=== PATIENT | male | born 1975 | race Caucasian/White ===

== ENCOUNTER 2021-01-20 17:58 | Emergency (ER) | payer OTHER, SELFPAY ==
--- NOTE | ~2021-01-20 | XR_ITS ---
EXAMINATION: XR foot LT min 3V DATE: 01/20/2021 18:39 INDICATION: Left foot pain after stepping on a nail. TECHNIQUE: Dorsoplantar, two oblique and lateral views of the left foot were obtained. COMPARISON: None. FINDINGS: Alignment is normal. No fracture. Mild osteoarthritis at the first metatarsophalangeal joint. Small p lantar calcaneal spur. Soft tissues are unremarkable. No soft tissue gas or radiopaque foreign bodies . IMPRESSION: 1. No acute osseous abnormality or radiopaque foreign body. Reviewed, dictated and finalized at location A.
[2021-01-20 18:22] VITALS: BP 109/62; PULSE 60; RESP 18; TEMP 37.2; O2SAT 97
--- NOTE | 2021-01-20 19:21 | ED.SKABFB ---
HPI - Skin/Abscess/Foreign Bdy General Chief complaint: Skin/Abscess/Foreign Body Stated complaint: Swollen and pain in left Foot from Nail Time Seen by Provider: 01/20/21 19:21 Source: patient and RN notes reviewed Mode of arrival: ambulatory Limitations: no limitations History of Present Illness HPI narrative: 45 year old male presents to express care with complaint of discomfort to the plantar aspect of his left foot from where he stepped on a nail yesterday. Patient has noted puncture wound to the plantar aspect of his left foot which is tender to palpation, no drainage noted or any acute warmth or mild redness of wound site and surrounding tissue with minimal swelling noted.. Patient states that he is unsure when he had his last tetanus immunization but does not want one today. Patient denies any fevers, chills, or sweats or any other symptoms. MD complaint: other (puncture wound left foot) Onset (ago): day(s) (1) Tetanus up to date: unsure (refuses) Location: L foot Severity: moderate Severity scale (1-10): 5 Quality: aching Pain Consistency: intermittent Exacerbating factors: palpation and other (ambulation) Context: other (stepped on nail) Treatments prior to arrival: none Related Data Allergies Allergy/AdvReac Type Severity Reaction Status Date / Time No Known Allergies Allergy Unverified 02/19/15 16:51 Review of Systems Review of Systems: Narrative: CONSTITUTIONAL: Denies fever, chills, or sweats. EYES: Denies visual changes, redness, or discharge. ENT: Denies rhinorrhea, congestion, sore throat, or otalgia. CARDIOVASCULAR: Denies chest pain, palpitations, or edema. RESPIRATORY: Denies cough or dyspnea. GASTROINTESTINAL: Denies abdominal pain, nausea, vomiting, or diarrhea. GENITOURINARY: Denies dysuria or hematuria. SKIN: Denies rash or itching.positive for puncture wound to mid plantar aspect of his left foot. MUSCULOSKELETAL: Denies back pain, joint pain, or myalgia. NEUROLOGIC: Denies headache, numbness, or weakness. PSYCHIATRIC: Denies anxiety or depression. All systems reviewed & are unremarkable except as noted in HPI and below PMFSH Past Medical History Medical History (Updated 01/23/21 @ 19:49 by Tammie Cook NP) GERD (gastroesophageal reflux disease) Surgical History Surgical History (Updated 01/23/21 @ 19:38 by Tammie Cook NP) History of umbilical hernia repair Family History Family History (Updated 01/23/21 @ 19:38 by Tammie Cook NP) Other No significant family history Social History Social History (Updated 01/23/21 @ 19:45 by Tammie Cook NP) Smoking packs per day: 1 Smoking cigarettes per day: 20.0 Years smoked: 30 Smoking pack-years: 30.00 Smoking status: Current every day smoker Tobacco type: cigarettes Alcohol intake: current Alcohol use details: social Substance use: never Living arrangements: with family Gender identity (if verbalized by the patient): Male Comments At time of signature, agree with nursing past medical, surgical, social and family history. There is no relevant family history pertinent to the presenting complaint Exam Narrative: Exam Narrative: GENERAL: Well-appearing, well-nourished, and in no acute distress. HEAD: Normocephalic, atraumatic. EYES: PERRLA and EOMI. ENT: Nares clear, no rhinorrhea or epistaxis. Mucous membranes moist. NECK: Supple.no lymphadenopathy CHEST: Clear to auscultation. No respiratory distress.SAO2 97% on room air HEART: Regular rate and rhythm. No murmur heard. Normal peripheral pulses. ABDOMEN: Soft, nontender, nondistended, normal active bowel sounds. EXTREMITIES: Normal range of motion. No edema. SKIN: Warm, dry, no rash.puncture wound to the mid plantar region of his left foot with mild redness and swelling at wound site,Patient has full mobility of his left foot with no tingling or numbness, strong pedal and posterior tibial pulses NEURO: No focal deficits. Alert and oriented x3.
== END 2021-01-20 19:30 | disposition home or self-care (01) ==
PROVIDERS: Emergency Provider Registered Nurse; PCP Family Medicine
DX: S91.332A Puncture wound without foreign body, left foot, initial encounter (principal); W45.0XXA Nail entering through skin, initial encounter; F17.210 Nicotine dependence, cigarettes, uncomplicated; K21.9 Gastro-esophageal reflux disease without esophagitis
CPT/HCPCS: 73630; 99203; G0463

== ENCOUNTER 2022-06-19 12:25 | Emergency (ER) | payer OTHER, SELFPAY ==
--- NOTE | 2022-06-19 12:29 | ED.SKABFB ---
HPI - Skin/Abscess/Foreign Bdy General Chief complaint: Skin/Abscess/Foreign Body Stated complaint: boil in between butt crack Time Seen by Provider: 06/19/22 12:42 Source: patient and RN notes reviewed Mode of arrival: ambulatory Limitations: no limitations History of Present Illness HPI narrative: 47-year-old male presents with concern for of well known his buttocks. He reports noticing yesterday some pain, it became worse yesterday it is painful to walk and sit. He denies fever, aches, chills, sweats. Denies drainage from the area. Reports he is spread stab without relief complaint: abscess/boil Related Data Allergies Allergy/AdvReac Type Severity Reaction Status Date / Time No Known Allergies Allergy Unverified 06/19/22 12:36 Review of Systems Review of Systems: CONSTITUTIONAL: Denies malaise, chills, sweats, or fever. EYES: Denies redness, or discharge. ENT: Denies rhinorrhea, congestion, swollen lips, swollen tongue CARDIOVASCULAR: Denies chest pain, palpitations, or edema. RESPIRATORY: Denies cough or dyspnea. GASTROINTESTINAL: Denies abdominal pain, nausea, vomiting SKIN: Reports redness, swelling, tenderness to right buttock MUSCULOSKELETAL: Denies joint pain or myalgia. NEUROLOGIC: Denies headache. All systems reviewed & are unremarkable except as noted in HPI and below PMFSH Past Medical History Medical History (Updated 06/19/22 @ 12:52 by Beth Valencia NP) GERD (gastroesophageal reflux disease) Surgical History Surgical History (Updated 01/23/21 @ 19:38 by Tammie Cook NP) History of umbilical hernia repair Family History Family History (Updated 01/23/21 @ 19:38 by Tammie Cook NP) Other No significant family history Social History Social History (Updated 01/23/21 @ 19:45 by Tammie Cook NP) Smoking packs per day: 1 Smoking cigarettes per day: 20.0 Years smoked: 30 Smoking pack-years: 30.00 Smoking status: Current every day smoker Tobacco type: cigarettes Alcohol intake: current Alcohol use details: social Substance use: never Gender identity (if verbalized by the patient): Male Comments At time of signature, agree with nursing past medical, surgical, social and family history. There is no relevant family history pertinent to the presenting complaint Exam Narrative: GENERAL: Well-appearing, well-nourished, and in no acute distress. HEAD: Normocephalic, atraumatic. EYES: PERRLA, conjunctivae clear ENT: Mucous membranes moist. NECK: Supple. No lymphadenopathy CHEST: Clear to auscultation. No respiratory distress. HEART: Regular rate and rhythm. SKIN: Warm, dry. Approximately 3cm x 2cm area of induration, warmth, erythema with well-defined edges, without fluctuation or drainage noted to the right buttock. No vesicles, bullae, necrosis, ecchymosis, crepitus noted, surrounding structures intact without tenderness. NEURO: Alert and oriented x3. PSYCH: Normal mood and affect Course Course Emergency Course: Patient is aware of diagnosis, understands and agrees to treatment plan. Anticipatory guidance given. Patient agrees to follow-up as directed and is aware of reasons to seek care at the emergency department. Portions of this record may have been created with voice recognition software Level of Care: Express Care Visit Vital Signs Vital signs: Reviewed. MDM - Skin/Abscess/Foreign Bdy MDM Narrative Medical decision making narrative: Does not appear at this time to be erythema multiforme, bullous, SJS, TEN; no evidence at this time to suggest RMSF, NSTI, endocarditis or Lyme disease; patient looks well, nontoxic and is tolerating oral intake; no neurologic signs or symptoms; no headache, photophobia or neck pain; afebrile. Patient does not have history of of penetrating trauma, laceration, blunt trauma, recent surgery, immunosuppression, malignancy, obesity, alcoholism, corticosteroid use. Discussed the importance of follow-up, mega
[2022-06-19 12:30] VITALS: BP 132/89; PULSE 61; RESP 20; TEMP 36.4; O2SAT 98
== END 2022-06-19 12:56 | disposition home or self-care (01) ==
PROVIDERS: Emergency Provider Nurse Practitioner; PCP Family Medicine
DX: L03.317 Cellulitis of buttock (principal); F17.210 Nicotine dependence, cigarettes, uncomplicated
CPT/HCPCS: 99213; G0463

== ENCOUNTER 2022-06-21 16:32 | Emergency (ER) | payer OTHER, SELFPAY ==
[2022-06-21 16:43] VITALS: BP 119/68; PULSE 70; RESP 20; TEMP 37.1; O2SAT 96
--- NOTE | 2022-06-21 18:03 | ED.GENADULT ---
HPI - General Adult General Chief complaint: Skin/Abscess/Foreign Body Stated complaint: Skin Problem Time Seen by Provider: 06/21/22 18:05 Source: patient Mode of arrival: ambulatory Limitations: no limitations History of Present Illness HPI narrative: 47-year-old male presented for complaint of worsening abscess to the right buttocks. He was seen at our clinic on 06/19, taking the prescribed antibiotic as directed. He states the pain and swelling has worsened. He states warm compresses also worsens the pain. He denies nausea, vomiting, fevers or chills. Related Data Home Medications Medication Instructions Recorded Confirmed No Home Medications 06/21/22 06/21/22 Allergies Allergy/AdvReac Type Severity Reaction Status Date / Time No Known Allergies Allergy Unverified 06/21/22 17:26 Review of Systems Review of Systems: CONSTITUTIONAL: Denies body aches, fever, chills, or sweats. EYES: Denies visual changes, redness, or discharge. ENT: Denies rhinorrhea, congestion CARDIOVASCULAR: Denies chest pain, palpitations, or edema. RESPIRATORY: Denies cough or dyspnea. GASTROINTESTINAL: Denies abdominal pain, nausea, vomiting, or diarrhea. SKIN: Per HPI MUSCULOSKELETAL: Denies back pain, joint pain, or myalgia. NEUROLOGIC: Denies headache, numbness, tingling, or weakness. FOR[facility] Past Medical History Medical History GERD (gastroesophageal reflux disease) Surgical History Surgical History History of umbilical hernia repair Family History Family History Other No significant family history Social History Social History Smoking packs per day: 1 Smoking cigarettes per day: 20.0 Years smoked: 30 Smoking pack-years: 30.00 Smoking status: Current every day smoker Tobacco type: cigarettes Alcohol intake: current Alcohol use details: social Substance use: never Gender identity (if verbalized by the patient): Male Comments At time of signature, I have reviewed and agree with nursing past medical, surgical, social and family history unless otherwise noted. Please see nursing chart for further information. There is no relevant family history pertinent to the presenting complaint Exam Narrative: GENERAL: Well-appearing HEAD: Normocephalic, atraumatic. EYES: conjunctivae clear, and EOMI. ENT: Mucous membranes moist. Oropharynx without edema, erythema or lesions. NECK: Supple. No lymphadenopathy CHEST: Clear to auscultation. HEART: Regular rate and rhythm. SKIN: Warm, dry. approximately 5 cm erythematous/indurated area to the right medial buttock, fluctuant center approximately 2 cm, no active drainage. Site is tender with minimal touch. NEURO: Alert and oriented x3. Course Course Emergency Course: Patient is aware of diagnosis, understands and agrees to treatment plan. Anticipatory guidance given. Patient agrees to follow-up as directed and is aware of reasons to seek care at the emergency department. Portions of this record may have been created with voice recognition software Level of Care: Express Care Visit Vital Signs Vital signs: Vital Signs Temperature 98.7 F 06/21/22 16:43 Pulse Rate 70 06/21/22 16:43 Respiratory Rate 20 06/21/22 16:43 Blood Pressure 119/68 06/21/22 16:43 Pulse Oximetry 96 06/21/22 16:43 Oxygen Delivery Room Air 06/21/22 16:43 Temperature 98.7 F 06/21/22 16:43 Pulse Rate 70 06/21/22 16:43 Respiratory Rate 20 06/21/22 16:43 Blood Pressure 119/68 06/21/22 16:43 Pulse Oximetry 96 06/21/22 16:43 Oxygen Delivery Room Air 06/21/22 16:43 Reviewed Procedures Abscess I/D right medial buttock: Date of Incision: 06/21/22 Local Anesthetic: lidocaine 1% and with epi
--- NOTE | 2022-06-21 19:35 | PC.NURSE ---
10 minutes prior to discharge pt/friend reported lightheadedness, paleness when standing - assisted to chair. observed sitting. p 60, b/p 120/70, r 20, skin warm and dry. cool rag applied to forehead, neck - reports then feeling much better. refuses wheelchair at this time.
== END 2022-06-21 18:50 | disposition home or self-care (01) ==
PROVIDERS: Emergency Provider Nurse Practitioner Family; PCP Family Medicine
DX: L02.31 Cutaneous abscess of buttock (principal); K21.9 Gastro-esophageal reflux disease without esophagitis; F17.210 Nicotine dependence, cigarettes, uncomplicated
CPT/HCPCS: 10060; 87070; 87147; 87181; 87186; 87205; 99212; G0463

== ENCOUNTER 2022-09-08 14:32 | Emergency (ER) | payer OTHER, SELFPAY ==
--- NOTE | ~2022-09-08 | XR_ITS ---
Right Knee Technique: AP, lateral, and oblique views were obtained. Clinical History: Pain Findings: No fracture or dislocation is seen. Osseous alignment is anatomic. Joint spaces are preserv ed without degenerative or erosive change. Possible small joint effusion is seen. Impression: No fracture or dislocation. Possible small joint effusion. [place]ed, [place] [facility] [place] [facility] Impression: No fracture or dislocation. Possible small joint effusion.
[2022-09-08 14:37] VITALS: BP 116/57; PULSE 77; RESP 18; TEMP 36.9; O2SAT 97
--- NOTE | 2022-09-08 15:06 | ED.LOWEXIN ---
HPI - Extremity Injury (Lower) General Chief Complaint: Extremity Injury, Lower Stated Complaint: right knee swelling, tightness, popping Time Seen by Provider: 09/08/22 15:06 Source: patient, RN notes reviewed and old records reviewed Mode of arrival: ambulatory Limitations: no limitations History of Present Illness HPI Narrative: 47 year old old male presents to [facility] care with complaints of pain to his right knee for the past 4-5 days. He states he was walking and stepped to the side and felt pop to his knee. Patient has reported pain to the lower aspect of his knee under knee cap region. He reports that he has been using ice to his right knee but has not taken any OTC medications for his discomfort. MD complaint: knee injury Onset (ago): day(s) (4-5) Type of Injury: other (twisted while walking felt pop) Severity scale (1-10): 5 Treatments prior to arrival: cold therapy Related Data Allergies Allergy/AdvReac Type Severity Reaction Status Date / Time No Known Allergies Allergy Unverified 09/08/22 14:39 Review of Systems Review of Systems: CONSTITUTIONAL: Denies fever, chills, or sweats. CARDIOVASCULAR: Denies chest pain, palpitations, or edema. RESPIRATORY: Denies cough or dyspnea. SKIN: Denies rash or itching. Denies laceration or abrasions MUSCULOSKELETAL: Reports pain to the area under knee cap of right knee for past 4-5 days NEUROLOGIC: Denies numbness, or weakness. All systems reviewed & are unremarkable except as noted in HPI and below PMFSH Past Medical History Medical History GERD (gastroesophageal reflux disease) Surgical History Surgical History History of umbilical hernia repair Family History Family History Other No significant family history Social History Social History Smoking packs per day: 1 Smoking cigarettes per day: 20.0 Years smoked: 30 Smoking pack-years: 30.00 Smoking status: Current every day smoker Tobacco type: cigarettes Alcohol intake: current Alcohol use details: social Substance use: never Living arrangements: with family Gender identity (if verbalized by the patient): Male Comments At time of signature, agree with nursing past medical, surgical, social and family history. There is no relevant family history pertinent to the presenting complaint Exam Narrative: GENERAL: Well-appearing, well-nourished, and in no acute distress. HEAD: Normocephalic, atraumatic. EYES: PERRLA and EOMI. ENT: Nares clear, no rhinorrhea or epistaxis. Mucous membranes moist. NECK: Supple. no lymphadenopathy CHEST: Clear to auscultation. No respiratory distress.SAO2 97% on room air HEART: Regular rate and rhythm. No murmur heard. Normal peripheral pulses. ABDOMEN: Soft, nontender, nondistended, normal active bowel sounds. EXTREMITIES: Normal range of motion. No edema.Pain to area under knee cap with full ROM noted but with discomfort, no obvious edema or deformity noted, negative varus and valgus test, drawer test negative. sensation and circulation is intact. SKIN: Warm, dry, no rash. NEURO: No focal deficits. Alert and oriented x3. Course Course Emergency Course: Patient is aware of diagnosis, understands and agrees to treatment plan. Anticipatory guidance given. Patient agrees to follow-up as directed and is aware of reasons to seek care at the emergency department. Portions of this record may have been created with voice recognition software Level of Care: Express Care Visit Vital Signs Vital signs: Vital Signs Temperature 36.9 C 09/08/22 14:37 Pulse Rate 77 09/08/22 14:37 Respiratory Rate 18 09/08/22 14:37 Blood Pressure 116/57 L 09/08/22 14:37 Pulse Oximetry 97 09/08/22 14:37 Oxygen Delivery Room Air 09/08/22 14:37
== END 2022-09-08 15:21 | disposition home or self-care (01) ==
PROVIDERS: Emergency Provider Registered Nurse; PCP Family Medicine
DX: M25.461 Effusion, right knee (principal); F17.210 Nicotine dependence, cigarettes, uncomplicated
CPT/HCPCS: 73564; 99213; G0463

== ENCOUNTER 2022-11-17 09:07 | Emergency (ER) | payer OTHER, SELFPAY ==
[2022-11-17 09:13] VITALS: BP 146/80; PULSE 66; RESP 16; TEMP 36.8; O2SAT 100
--- NOTE | 2022-11-17 09:18 | ED.SKABFB ---
HPI - Skin/Abscess/Foreign Bdy General Chief complaint: Skin/Abscess/Foreign Body Stated complaint: left arm swollen/poss bite Time Seen by Provider: 11/17/22 09:18 Source: patient, RN notes reviewed and old records reviewed Mode of arrival: ambulatory Limitations: no limitations History of Present Illness HPI narrative: 47 year old male who presents to [facility] care with complaints of some swelling and redness area on left forearm that he noted this morning. Patient states he thinks he got a bug bite to the area and he admits to squeezing on area with swelling now noted. Patient reports no acute pain to area but reports some itching. Patient has [id number] area of redness to mid left forearm with no drainage noted, mild warmth to tissue area and firmness noted, small bite umm noted. Patient denies any known fevers chills or sweats.Patient is right hand dominant. MD complaint: rash, insect bite/sting and other (swelling and redness) Onset (ago): hour(s) (noted this morning) Severity scale (1-10): 2 Treatments prior to arrival: other (squeezed on tissue area now increased redness and swelling) Related Data Home Medications Medication Instructions Recorded Confirmed tadalafil 10 mg tablet 10 mg PO DAILY 11/17/22 11/17/22 Allergies Allergy/AdvReac Type Severity Reaction Status Date / Time No Known Allergies Allergy Verified 11/17/22 09:18 Review of Systems Review of Systems: CONSTITUTIONAL: Denies fever, chills, or sweats. CARDIOVASCULAR: Denies chest pain, palpitations, or edema. RESPIRATORY: Denies cough or dyspnea. SKIN: Reports swelling and redness to left forearm,bite umm center of red area no drainage noted MUSCULOSKELETAL: Denies joint pain or myalgia. NEUROLOGIC: Denies headache, numbness, or weakness. All systems reviewed & are unremarkable except as noted in HPI and below [facility] Past Medical History Medical History (Updated 11/18/22 @ 00:01 by Jeromy Garcia) GERD (gastroesophageal reflux disease) Surgical History Surgical History (Updated 11/18/22 @ 15:40 by Tammie Cook NP) History of rotator cuff surgery right History of umbilical hernia repair Family History Family History Other No significant family history Social History Social History Smoking packs per day: 1 Smoking cigarettes per day: 20.0 Years smoked: 30 Smoking pack-years: 30.00 Smoking status: Current every day smoker Tobacco type: cigarettes Alcohol intake: current Alcohol use details: social Substance use: never Living arrangements: with family Gender identity (if verbalized by the patient): Male Comments At time of signature, agree with nursing past medical, surgical, social and family history. There is no relevant family history pertinent to the presenting complaint Exam Narrative: GENERAL: Well-appearing, well-nourished, and in no acute distress. HEAD: Normocephalic, atraumatic. EYES: PERRLA, conjunctivae clear, and EOMI. ENT: Mucous membranes moist. Oropharynx without edema, erythema or lesions. NECK: Supple. No lymphadenopathy CHEST: Clear to auscultation. No respiratory distress.SAO2 100% on room air HEART: Regular rate and rhythm. SKIN: Warm, dry.? Patches of erythema and edema to left forearm with minimal warmth, small bite in center of redness, no drainage noted NEURO:? Alert and oriented x3. PSYCH: Normal mood and affect Course Course Emergency Course: Patient is aware of diagnosis, understands and agrees to treatment plan.? Anticipatory guidance given.? Patient agrees to follow-up as directed and is aware of reasons to seek care at the emergency department. Portions of this record may have been created with voice recognition software Level of Care: Express Care Visit Vital Signs Vital signs: Vital Signs Temperature 36.8 C 11/06
== END 2022-11-17 09:30 | disposition home or self-care (01) ==
PROVIDERS: Emergency Provider Registered Nurse; PCP Family Medicine
DX: L03.114 Cellulitis of left upper limb (principal); K21.9 Gastro-esophageal reflux disease without esophagitis; F17.210 Nicotine dependence, cigarettes, uncomplicated
CPT/HCPCS: 99213; G0463

== ENCOUNTER 2023-12-20 12:17 | Emergency (ER) | payer OTHER, SELFPAY ==
--- NOTE | ~2023-12-20 | XR_ITS ---
Left Knee Technique: AP, lateral, and oblique views were obtained. Clinical History: Pain Findings: No fracture or dislocation is seen. Osseous alignment is anatomic. Joint spaces are preserv ed without degenerative or erosive change. Soft tissues are unremarkable. No joint effusion is seen. Impression: Unremarkable left knee radiographs. Reviewed, dictated and finalized at [facility]. Impression: Unremarkable left knee radiographs.
[2023-12-20 12:24] VITALS: BP 123/64; PULSE 61; RESP 16; TEMP 36.8; O2SAT 97
--- NOTE | 2023-12-20 14:08 | ED.GENADULT ---
HPI - General Adult General Chief complaint: Extremity Injury, Lower Stated complaint: Left Knee/Injury Time Seen by Provider: 12/20/23 13:40 Source: patient, RN notes reviewed and old records reviewed Mode of arrival: ambulatory Limitations: no limitations History of Present Illness HPI narrative: 48 year old male presents to [facility] care with complaints of injury to his left knee at work today around 1000. Patient initially upset he had to repeat his story to another person, when identified that I was [employer] he said oh I've told this to 3 other people since I got here. Patient states he slipped at work today and twisted his left knee. He reports that the pain was so intense that he fell back and questions whether he passed out. Patient states he doesn't know if he hit his back or his head, denies any headache or back pain at this time. Patient states that he had a left meniscal tear repaired in his left knee in July and pain feels the same as then and he is having trouble bearing full weight to his knee. Patient does have some limp noted to gait, Patient reports that pain is to sides of knee and behind his knee reports that he has taken some Ibuprofen and rates pain at 5/10. x-ray done of left knee in clinic he states he thinks he needs MRI of his left knee. MD complaint: injury to left knee twisting injury Onset (ago): hour(s) (1000 today) Location: left and lower extremity (knee) Severity scale (1-10): 5 Quality: other (soreness) Treatments prior to arrival: NSAID Related Data Home Medications Medication Instructions Recorded Confirmed No Home Medications 12/20/23 12/20/23 Allergies Allergy/AdvReac Type Severity Reaction Status Date / Time No Known Allergies Allergy Verified 12/20/23 12:53 Review of Systems Review of Systems: CONSTITUTIONAL: Denies fever, chills, or sweats. EYES: Denies visual changes, redness, or discharge. ENT: Denies rhinorrhea, congestion, sore throat, or otalgia. CARDIOVASCULAR: Denies chest pain, palpitations, or edema. RESPIRATORY: Denies cough or dyspnea. GASTROINTESTINAL: Denies abdominal pain, nausea, vomiting, or diarrhea. GENITOURINARY: Denies dysuria or hematuria. SKIN: Denies rash or itching. MUSCULOSKELETAL: Denies back pain,positive for pain to sides and back of his left knee from twisting injury today. or myalgia. NEUROLOGIC: Denies headache, numbness, or weakness. PSYCHIATRIC: Denies anxiety or depression. All systems reviewed & are unremarkable except as noted in HPI and below PMFSH Past Medical History Medical History GERD (gastroesophageal reflux disease) Sinus infection Surgical History Surgical History H/O arthroscopy of left knee 07/2023 meniscus repair H/O inguinal hernia repair History of rotator cuff surgery right History of umbilical hernia repair Family History Family History Other No significant family history Social History Social History Smoking packs per day: 1 Smoking cigarettes per day: 20.0 Years smoked: 30 Smoking pack-years: 30.00 Smoking status: Current every day smoker Tobacco type: cigarettes Alcohol intake: current Alcohol use details: social Substance use: never Living arrangements: with family Gender identity (if verbalized by the patient): Male Comments At time of signature, agree with nursing past medical, surgical, social and family history. There is no relevant family history pertinent to the presenting complaint Exam Narrative: GENERAL: Well-appearing, well-nourished, and in no acute distress. HEAD: Normocephalic, atraumatic. EYES: PERRLA and EOMI. ENT: Nares clear, no rhinorrhea or epistaxis. Mucous membranes moist. NECK: Supple. no lymphadenopathy CHEST: Clear to auscultation. No re
== END 2023-12-20 14:28 | disposition home or self-care (01) ==
PROVIDERS: Emergency Provider Registered Nurse; PCP Family Medicine
DX: M25.562 Pain in left knee (principal); F17.210 Nicotine dependence, cigarettes, uncomplicated; K21.9 Gastro-esophageal reflux disease without esophagitis
CPT/HCPCS: 73564; 99213; G0463

== ENCOUNTER 2024-09-21 17:02 | Emergency (ER) | payer MEDICAID, SELFPAY ==
--- OUTSIDE RECORDS SUMMARY | 2024-09-21 17:05 | XMS_ITS | Data Portability ---
Author Organization [facility] Saurabh QUIROS Address [address] [place] [address] Care Team Providers Care Setter Helper Name Role Phone SANTANA SORIA Primary Care Provider Assessment Encounter Date Assessment Date Assessment LastModified by Organization Details LastModified Time 10/02/2019 10/02/2019 Dr. Garcia is planning to do an elective orthopedic intervention on his shoulder. Not available 10/03/2019 11:59:59 05/05/2021 05/05/2021 Pt will pursue followup with an orthopedist to see if he needs surgery or not. [email or web address] Not available 05/06/2021 13:09:40 Plan of Treatment Reminders Order Date Submit Date Provider Last Modified By Organization Details Last Modified Time Details Appointments None recorded. Lab lipid panel, serum 2020 [facility], [address] [place] [address], [facility] [address], [place], [address], 08:20:17 CMP, serum or plasma 2020 [facility], [address] [place] [address], [address], [place], [address], 08:20:16 CBC w/ auto diff 2020 [facility], [address] [place] [address], [address], [place], [address], 08:20:15 TSH + free T4, serum 2020 [facility], [address] [facility], [address], [place], [address], 08:20:15 vitamin D, 25-hydrox y, total, serum 2020 [facility], [address] [facility], [address], [place], [address], 08:20:18 HbA1c (hemoglob in A1c), blood 2020 [facility], [address] [facility], [address], [place], [address], 08:20:17 Referral orthopedi c surgeon referral - left knee pain concernin g for meniscal injury. Patient prefers ortho referral vs trail of PT 2022 023 JASON Weber MD, [address] [facility] , [address], [place], [address], 3 14:00:31 general surgeon referral 2022 023 JASON Perez MD, [address] [facility] , [address], [place], [address], 3 15:13:36 orthopedi c surgeon referral 2022 023 [email or web address] Juan Weber MD, [address] [facility] , [address], [place], [address], 3 16:35:47 orthopedi c surgeon referral 2020 021 JASON Garcia MD, [address] [facility] , [address], [place], [address], 1 12:03:35 Procedures None recorded. Surgeries None recorded. Imaging None recorded. Medication Orders hydrocodo ne 5 mg-acetam inophen 325 mg tablet [address] [facility][id number], [address], [place], [place], [id number], 3 13:56:23 Medrol (Rafat) 4 mg tablets in a dose pack 2022 023 [id number], [address], [place], [place], [id number], 3 16:26:08 doxycycli ne monohydra te 100 mg capsule 2022 023 [facility] #13116, [address], [place], [place], [id number], 3 16:25:56 tadalafil 10 mg tablet 2022 023 [facility] #[id number], [address], [place], [place], [id number], 3 16:44:03 Nicoderm CQ 21 mg/24 hr daily transderm al patch [address] [facility] #26698, [address], [place], [place], [id number], 4 11:39:27 nicotine 21 mg/24 hr daily transderm al patch [address] [facility]99, [address] [place], [place], [id number], 4 11:39:27 nicotine 14 mg/24 hr daily transderm al patch 2020 021 [facility]50797, [address] [place], [place], [id number], 16:09:35 nicotine 7 mg/24 hr daily transderm al patch 2020 021 [facility], [address] [place], [id number], 16:09:44 Patient TargetsNo targets recorded. Patient Instructions Encounter Date Encounter Id Patient Instructions Last Modified By Organization Details Last Modified Time 05/05/2021 [id number] When You Want to Lose Weight: Care Instructions [email or web address] Not available 05/05/2021 12:30:26 09/26/2022 [id number] A healthy lifestyle: care instructions [email or web address] Not available 09/26/2022 17:45:45 Quitting Tobacco : Care Instructions [email or web address] Not available 09/26/2022 17:45:45 11/30/2022 [id number] inguinal hernia: care instructions [email or web address] Not available 11/30/2022 16:46:42 05/11/2023 [id number] On the date of this encounter, I was immediately available to assist the resident/fellow in the care of the patient, and have reviewed and agree with the resident s findings and plan of care. ~MD Filiberto [email or web address] Not available 05/15/2023 06:43:56 Reason for Referral Orthopedic Surgeon Referral for Pain of right shoulder joint Referring Physician: [facility], Encounter Date: 05/05/2021 Orthopedic Surgeon Referral for Tendinosis of right shoulder Referring Physician: [facility], Encounter Date: 09/26/2022 General Surgeon Referral for Right inguinal hernia Referring Physician: [facility], Encounter Date: 11/30/2022 Orthopedic Surgeon Referral for Pain of left knee joint left knee pain concerning for meniscal injury. Patient prefers ortho referral vs trail of PT Referring Physician: Warren Anderson Trucking Manager, Encounter Date: 05/11/2023 Results Created Date Observation Date Name Description Value Unit Range Abnormal Flag Note LastModifiedBy Organization Detail LastModifiedTime 05/05/20 21 05/06/2021 TSH+F REE T4 TSH 2.320 uIU/m L 0.450- 4.500 Not Available [facility] ([facility]) [address] [place], [address], 05/06/2021 08:20:14 05/05/20 21 05/06/2021 TSH+F REE T4 T4,free(dire ct) 1.05 NG/dL 0.82-1 .77 Not Available [facility] ([facility]) [address] [place], [address], 05/06/2021 08:20:14 05/05/20 21 05/06/2021 CBC WITH DIFFE RENTI AL/PL ATELE T WBC 9.8 x10e3 /uL 3.4-10 .8 Not Available [facility] ([facility]) [address] [place], [address], 05/06/2021 08:20:15 05/05/20 21 05/06/2021 CBC WITH DIFFE RENTI AL/PL ATELE T RBC 5.60 x10e6 /uL 4.14-5 .80 Not Available [facility] ([facility]) [address] [place], [address], 05/06/2021 08:20:15 05/05/2005/06/2021 CBC WITH DIFFE RENTI AL/PL ATELE T hemoglobin 17.0 g/dL 13.0-1 7.7 Not Available [facility] ([facility]) [address] [place], [address], 05/06/2021 08:20:15 05/05/20 21 05/06/2021 CBC WITH DIFFE RENTI AL/PL ATELE T hematocrit 51.1 % 37.5-5 1.0 above high normal Not Available [facility] ([facility]) [address] [place], [address], 05/06/2021 08:20:15 05/05/20 21 05/06/2021 CBC WITH DIFFE RENTI AL/PL ATELE T MCV 91 fL 79-97 Not Available [facility] ([facility]) [address] [facility], [place], [address], 05/06/2021 08:20:15 05/05/20 21 05/06/2021 CBC WITH DIFFE RENTI AL/PL ATELE T MCH 30.4 pg 26.6-3 3.0 Not Available [facility] ([facility]) [address] [facility], [place], [address], 05/06/2021 08:20:15 05/05/20 21 05/06/2021 CBC WITH DIFFE RENTI AL/PL ATELE T MCHC 33.3 g/dL 31.5-3 5.7 Not Available [facility] ([facility]) [address] [facility], [place], [address], 05/06/2021 08:20:15 05/05/20 21 05/06/2021 CBC WITH DIFFE RENTI AL/PL ATELE T RDW 13.0 % 11.6-1 5.4 Not Available [facility] ([facility]) [address] [facility], [place], [address], 05/06/2021 08:20:15 05/05/2005/06/2021 CBC WITH DIFFE RENTI AL/PL ATELE T platelets 165 x10e3 /uL 150-45 0 Not Available [facility] ([facility]) [address] [facility], [place], [address], 05/06/2021 08:20:15 05/05/20 21 05/06/2021 CBC WITH DIFFE RENTI AL/PL ATELE T neutrophils 63 % not estab. Not Available [facility] ([facility]) [address] [place], [address], 05/06/2021 08:20:15 05/05/20 21 05/06/2021 CBC WITH DIFFE RENTI AL/PL ATELE T lymphs 24 % not estab. Not Available [facility] ([facility]) [address] [facility], [place], [address], 05/06/2021 08:20:15 05/05/20 21 05/06/2021 CBC WITH DIFFE RENTI AL/PL ATELE T monocytes 9 % not estab. Not Available [facility] ([facility]) [address] [facility], [place], [address], 05/06/2021 08:20:15 05/05/20 21 05/06/2021 CBC WITH DIFFE RENTI AL/PL ATELE T eos 2 % not estab. Not Available [facility] ([facility]) [address] [facility], [place], [address], 05/06/2021 08:20:15 05/05/20 21 05/06/2021 CBC WITH DIFFE RENTI AL/PL ATELE T basos 1 % not estab. Not Available [facility] ([facility]) [address] [facility], [place], [address], 05/06/2021 08:20:15 05/05/20 21 05/06/2021 CBC WITH DIFFE RENTI AL/PL ATELE T immature cells ENAMEL BUFFER Not Available [facility] ([facility]) [address] [facility], [place], [address], 05/06/2021 08:20:15 05/05/20 21 05/06/2021 CBC WITH DIFFE RENTI AL/PL ATELE T neutrophils (absolute) 6.3 x10e3 /uL 1.4-7. 0 Not Available [facility] ([facility]) [address] [facility], [place], [address], 05/06/2021 08:20:15 05/05/20 21 05/06/2021 CBC WITH DIFFE RENTI AL/PL ATELE T lymphs (absolute) 2.4 x10e3 /uL 0.7-3. 1 Not Available [facility] ([facility]) [address] [facility], [place], [address], 05/06/2021 08:20:15 05/05/20 21 05/06/2021 CBC WITH DIFFE RENTI AL/PL ATELE T monocytes(ab solute) 0.9 x10e3 /uL 0.1-0. 9 Not Available [facility] ([facility]) [address] [facility], [place], [address], 05/06/2021 08:20:15 05/05/20 21 05/06/2021 CBC WITH DIFFE RENTI AL/PL ATELE T eos (absolute) 0.2 x10e3 /uL 0.0-0. 4 Not Available [facility] ([facility]) [address] [facility], [place], [address], 05/06/2021 08:20:15 05/05/20 21 05/06/2021 CBC WITH DIFFE RENTI AL/PL ATELE T baso (absolute) 0.1 x10e3 /uL 0.0-0. 2 Not Available [facility] ([facility]) [address] [facility], [place], [address], 05/06/2021 08:20:15 05/05/20 21 05/06/2021 CBC WITH DIFFE RENTI AL/PL ATELE T immature granulocytes 1 % not estab. Not Available [facility] ([facility]) [address] [facility], [place], [address], 05/06/2021 08:20:15 05/05/20 21 05/06/2021 CBC WITH DIFFE RENTI AL/PL ATELE T immature grans (abs) 0.1 x10e3 /uL 0.0-0. 1 Not Available [facility] ([facility]) [address] [facility], [place], [address], 05/06/2021 08:20:15 05/05/20 21 05/06/2021 CBC WITH DIFFE RENTI AL/PL ATELE T NRBC ENAMEL BUFFER Not Available [facility] ([facility]) [address] [facility], [place], [address], 05/06/2021 08:20:15 05/05/20 21 05/06/2021 CBC WITH DIFFE RENTI AL/PL ATELE T hematology comments: ENAMEL BUFFER Not Available [facility] ([facility]) [address] [facility], [place], [address], 05/06/2021 08:20:15 05/05/20 21 05/06/2021 COMP. METAB OLIC PANEL (14) glucose 84 mg/dL 65-99 Not Available [facility] ([facility]) [address] [facility], [place], [address], 05/06/2021 08:20:16 05/05/20 21 05/06/2021 COMP. METAB OLIC PANEL (14) BUN 12 mg/dL 6-24 Not Available [facility] ([facility]) [address] [place], [address], 05/06/2021 08:20:16 05/05/20 21 05/06/2021 COMP. METAB OLIC PANEL (14) creatinine 0.96 mg/dL 0.76-1 .27 Not Available [facility] ([facility]) [address] [facility], [place], [address], 05/06/2021 08:20:16 05/05/20 21 05/06/2021 COMP. METAB OLIC PANEL (14) eGFR if nonafricn AM 96 mL/mi n/1.7 3 >59 Not Available [facility] ([facility]) [address] [place], [address], 05/06/2021 08:20:16 05/05/20 21 05/06/2021 COMP. METAB OLIC PANEL (14) eGFR if africn AM 111 mL/mi n/1.7 3 >59 In accor dance with recom menda tijulio from the NKF-A SN Task force , [facility] is in the proce ss of updat ing its eGFR calcu latio n to the 2020 CKD-E PI creat inine equat ion that estim ates kidne y funct ion witho ut a race varia ble. Not Available [facility] ([facility]) [address] [facility], [place], [address], 05/06/2021 08:20:16 05/05/20 21 05/06/2021 COMP. METAB OLIC PANEL (14) BUN/creatini ne ratio 13 9-20 Not Available [facility] ([facility]) [address] [facility], [place], [address], 05/06/2021 08:20:16 05/05/20 21 05/06/2021 COMP. METAB OLIC PANEL (14) sodium 142 mmol/ L 134-14 4 Not Available [facility] ([facility]) [address] [facility], [place], [address], 05/06/2021 08:20:16 05/05/20 21 05/06/2021 COMP. METAB OLIC PANEL (14) potassium 5.0 mmol/ L 3.5-5. 2 Not Available [facility] ([facility]) [address] [place], [address], 05/06/2021 08:20:16 05/05/20 21 05/06/2021 COMP. METAB OLIC PANEL (14) chloride 104 mmol/ L 96-106 Not Available [facility] ([facility]) [address] [place], [address], 05/06/2021 08:20:16 05/05/20 21 05/06/2021 COMP. METAB OLIC PANEL (14) carbon dioxide, total 25 mmol/ L 20-29 Not Available [facility] ([facility]) [address] [place], [address], 05/06/2021 08:20:16 05/05/20 21 05/06/2021 COMP. METAB OLIC PANEL (14) calcium 9.4 mg/dL 8.7-10 .2 Not Available [facility] ([facility]) [address] [facility], [place], [address], 05/06/2021 08:20:16 05/05/20 21 05/06/2021 COMP. METAB OLIC PANEL (14) protein, total 7.2 g/dL 6.0-8. 5 Not Available [facility] ([facility]) [address] [facility], [place], [address], 05/06/2021 08:20:16 05/05/20 21 05/06/2021 COMP. METAB OLIC PANEL (14) albumin 4.5 g/dL 4.0-5. 0 Not Available [facility] ([facility]) [address] [facility], [place], [address], 05/06/2021 08:20:16 05/05/20 21 05/06/2021 COMP. METAB OLIC PANEL (14) globulin, total 2.7 g/dL 1.5-4. 5 Not Available [facility] ([facility]) [address] [facility], [place], [address], 05/06/2021 08:20:16 05/05/20 21 05/06/2021 COMP. METAB OLIC PANEL (14) A/G ratio 1.7 1.2-2. 2 Not Available [facility] ([facility]) [address] [facility], [place], [address], 05/06/2021 08:20:16 05/05/20 21 05/06/2021 COMP. METAB OLIC PANEL (14) bilirubin, total 0.4 mg/dL 0.0-1. 2 Not Available [facility] ([facility]) [address] [facility], [place], [address], 05/06/2021 08:20:16 05/05/20 21 05/06/2021 COMP. METAB OLIC PANEL (14) alkaline phosphatase 74 IU/L 44-121 Ple ase note refer ence pat laoiza e Not Available [facility] ([facility]) [address] [place], [address], 05/06/2021 08:20:16 05/05/20 21 05/06/2021 COMP. METAB OLIC PANEL (14) AST (SGOT) 17 IU/L 0-40 Not Available [facility] ([facility]) [address] [place], [address], 05/06/2021 08:20:16 05/05/20 21 05/06/2021 COMP. METAB OLIC PANEL (14) ALT (SGPT) 20 IU/L 0-44 Not Available [facility] ([facility]) [address] [place], [address], 05/06/2021 08:20:16 05/05/20 21 05/06/2021 LIPID PANEL cholesterol, total 201 mg/dL 100-19 9 above high normal Not Available [facility] ([facility]) [address] [place], [address], 05/06/2021 08:20:17 05/05/20 21 05/06/2021 LIPID PANEL triglyceride s 135 mg/dL 0-149 Not Available [facility] ([facility]) [address] [place], [address], 05/06/2021 08:20:17 05/05/20 21 05/06/2021 LIPID PANEL HDL cholesterol 37 mg/dL >39 below low normal Not Available [facility] ([facility]) [address] [place], [address], 05/06/2021 08:20:17 05/05/20 21 05/06/2021 LIPID PANEL VLDL cholesterol rick 25 mg/dL 5-40 Not Available [facility] ([facility]) [address] [facility], [place], [address], 05/06/2021 08:20:17 05/05/20 21 05/06/2021 LIPID PANEL LDL chol calc ([facility]) 139 mg/dL 0-99 above high normal Not Available [facility] ([facility]) [address] [facility], [place], [address], 05/06/2021 08:20:17 05/05/20 21 05/06/2021 LIPID PANEL comment: ENAMEL BUFFER Not Available [facility] ([facility]) [address] [facility], [place], [address], 05/06/2021 08:20:17 05/05/20 21 05/06/2021 HEMOG LOBIN A1C hemoglobin A1C 5.6 % 4.8-5. 6 Predi abete s: 5.7 - 6.4 Diabe zach: >6.4 Glyce donna contr ol for adult s with diabe zach: <7.0 Not Available [facility] ([facility]) [address] [facility], [place], [address], 05/06/2021 08:20:17 05/05/2005/06/2021 VITAM IN D, 25-HY DROXY vitamin D, 25-hydroxy 20.7 NG/mL 30.0-1 00.0 below low normal Vitam in D defic iency has been defin ed by the Insti tute of Medic ine and an Endoc rine Socie ty pract ice guide line as a level of serum 25-OH vitam in D less than 20 ng/mL (1,2) . The Endoc rine Socie ty went on to furth er defin e vitam in D insuf ficie ncy as a level betwe en 21 and 29 ng/mL (2). 1. IOM (Inst itute of Medic ine). 2010. Dieta ry refer ence intak es for calci um and D. Ginette romero [place]: The [facility] Press . 2. [place] cao MF, Laila reddy [place], Susana off-F errar i CARMELITA, et al. Evalu ation , treat ment, and preve ntion of vitam in D defic iency : an Endoc rine Socie ty clini rick pract ice guide line. JCEM. 2010; 96(7) :1911 -30. Not Available [facility] ([facility]) [address], [place], [address], 05/06/2021 08:20:18 02/02/20 21 01/20/2021 XR, foot, 3 or more view No observ ation record ed. [email or web address] Not Available 2020 23:40:46 09/10/19 23 09/08/2022 XR, knee No observ ation record ed. [facility] [address], [place], [address], 09/28/2022 10:50:00 11/28/19 23 11/27/2022 CT, abdom en + pelvi s, w/ contr ast No observ ation record ed. [email or web address] Not Available 2022 12:57:16 05/24/20 23 05/13/2023 XR, knee, 1 or 2 view No observ ation record ed. [email or web address] Not Available 2022 15:52:20 Result Notes None recorded. Problems Name Problem SNOMED Code Status Onset Date Resolution Date Notes Provider Name and Address Organization Details Recorded Time Injury of left knee 039937433958 106 Active 2022 hyperexte nded and possibly twisted knee stepping up a curb- exam suspiciou s for menescus injury Warren Anderson MD Attn: Mario g,[address] [facility], [place], [address], [place] - [facility] 3 12:55:34 Pain of left knee joint 375134462741 107 Active 2022 Chinyere Campos MD Attn: Mario g,[address] [facility], [place], [address], [place] [facility] 3 06:43:50 Skin lesion 19129205 Active Sukhdev Dolan MD Attn: Accounthenry louie,[address] [facility], [place], [address], [place] [facility] 5 08:50:25 Tinea cruris 301363366 Active Sukhdev Dolan MD Attn: Accounthenry g,[address] [facility], [place], [address], [place] [facility] 5 10:54:50 Lipoma of skin 743780722 Active Sukhdev Dolan MD Attn: Accounthenry g,[address] [facility], [place], [address], [place] [facility] 5 08:59:07 Smoker 79543901 Active Sukhdev Dolan MD Attn: Accounthenry g,[address] [facility], [place], [address], [place] [facility] 5 08:59:07 Shoulder pain 19465715 Active Juliet zamora, [place] - [facility] 6 12:07:51 Abdominal pain 55277506 Active 2016 Sukhdev Dolan MD Attn: Mario louie,[address] [facility], [place], [address], [place] [facility] 7 09:11:29 Leukocyto sis 831012149 Active 2016 Sukhdev Dolan MD Attn: Mario louie,[address] [facility], [place], [address], [place] [facility] 7 09:11:30 Kidney stone 19315588 Active 2016 Sukhdev Dolan MD Attn: Mario g,[address] [facility], [place], [address], [place] [facility] 7 13:34:46 Chest pain 05216872 Active 2016 Sukhdev Dolan MD Attn: Mario g,[address] [place], [address], [place] [facility] 7 10:38:56 Problem Notes None recorded. Procedures Surgical History Date Name Laterality Status Provider Name and Address Organization Details Recorded Time Other completed Lisa Stanford [place] 03/15/2017 10:01:34 complete repair of rotator cuff completed Yoly Aguilar [place] 09/26/2022 16:11:32 Hernia Repair completed Lara Rodríguez [place] [facility] 04/15/2015 10:23:19 Imaging Results Imaging Date Name Status LastModified by Organiz ation Details LastModified Time 01/20/2021 XR, foot, 3 or more view completed [email or web address] Information not available 02/01/2021 23:40:46 09/08/2022 XR, knee completed [facility] [address] [facility] [address], [place], [address], 09/28/2022 10:50:00 11/27/2022 CT, abdomen + pelvis, w/ contrast completed Information not available 11/29/2022 12:57:16 05/13/2023 XR, knee, 1 or 2 view completed Information not available 05/25/2023 15:52:20 Procedure Notes None recorded. Medical Equipment None Reported. Allergies Allergen ID Allergen Name Allergen Category Reaction Reaction Severity Criticality Documentation Date Start Date Code Code System Note Provider Name and Address Organization Details Recorded Time 431994 codeine medicatio n nausea moderate low 05/24/2023 2670 RxNorm Not Available Not Available Not Available Medications Name Sig Start Date Stop Date Status Note LastModified by Organization Details LastModified Time cyclobenz aprine 10 mg tablet Take 1 tablet 3 times a day by oral route as needed. 08/14 completed Not Available Not Available Not Available nicotine 14 mg/24 hr daily transderm al patch APPLY 1 PATCH TOPICALL Y TO THE SKIN EVERY DAY FOR 14 DAYS 09/26 completed Not Available Not Available Not Available azithromy kemal 250 mg tablet TAKE 2 TABLETS (500 MG) BY ORAL ROUTE ONCE DAILY FOR 1 DAY THEN 1 TABLET (250 MG) BY ORAL ROUTE ONCE DAILY FOR 4 DAYS 10/01 completed Not Available Not Available Not Available ibuprofen 800 mg tablet take 1 pill TID with meals prn 08/14 completed Not Available Not Available Not Available hydrocodo ne 5 mg-acetam inophen 325 mg tablet TAKE 1 TABLET BY MOUTH THREE TIMES DAILY FOR 7 DAYS NEEDED 05/24 completed not taking Not Available Not Available Not Available ondansetr on HCl 4 mg tablet 10/01 completed Not Available Not Available Not Available acetamino phen 300 mg-codein e 30 mg tablet Take 1 tablet 3 times a day by oral route as needed for 5 days. 08/07 completed Not Available Not Available Not Available tramadol 50 mg tablet Take 1 tablet twice a day by oral route as needed for 10 days. 08/07 completed Not Available Not Available Not Available meloxicam 7.5 mg tablet TAKE 1 TABLET BY MOUTH DAILY active Not Available Not Available No t Available Mobic 15 mg tablet Take 1 tablet every day by oral route as needed with meal for pain. 11/08 completed Not Available Not Available Not Available oxycodone -acetamin ophen 5 mg-325 mg tablet TAKE 1 TO 2 TABLETS BY MOUTH EVERY 8 HOURS NEEDED FOR PAIN 05/11 completed Not Available Not Available Not Available doxycycli ne monohydra te 100 mg capsule TAKE 1 CAPSULE BY MOUTH TWICE DAILY FOR 14 DAYS 11/30 completed Not Available Not Available Not Available cephalexi n 500 mg capsule TAKE 1 CAPSULE BY MOUTH EVERY 8 HOURS 11/30 completed Not Available Not Available Not Available Cipro 500 mg tablet Take 1 tablet every 12 hours by oral route for 7 days. 03/15 completed Not Available Not Available Not Available buspirone 10 mg tablet Take 1 tablet twice a day by oral route as needed. 10/05 completed Not Available Not Available Not Available nicotine 21 mg/24 hr daily transderm al patch UNWRAP AND APPLY 1 PATCH TO SKIN EVERY DAY 08/07 completed Not Available Not Available Not Available ibuprofen 600 mg tablet 08/07 completed Not Available Not Available Not Available methylpre dnisolone 4 mg tablets in a dose pack FOLLOW PACKAGE DIRECTIO NS 11/30 completed Not Available Not Available Not Available clotrimaz ole 1 % topical cream APPLY TO THE AFFECTED AND SURROUND ING AREAS OF SKIN BY TOPICAL ROUTE 2 TIMES PER DAY IN THE MORNING AND EVENING 2014 active Not Available Not Available Not Avai lable amoxicill in 875 mg-potass ium clavulana te 125 mg tablet TAKE 1 TABLET BY MOUTH EVERY 12 HOURS FOR 10 DAYS 09/26 completed Not Available Not Available Not Available nicotine 7 mg/24 hr daily transderm al patch APPLY 1 PATCH TOPICALL Y TO THE SKIN EVERY DAY FOR 14 DAYS 09/26 completed Not Available Not Available Not Available Ventolin HFA 90 mcg/actua tion aerosol inhaler 10/01 completed Not Available Not Available Not Available oxycodone 5 mg tablet TAKE 1 TABLET BY MOUTH EVERY 8 HOURS NEEDED FOR PAIN 05/24 completed patient don't have any Not Available Not Available Not Available tadalafil 10 mg tablet TAKE 1 TABLET BY MOUTH IN THE EVENING NEEDED active Not Available Not Available No t Available Vitals Date Recorded Body weight Respiratory rate Body height Body mass index (BMI) Body temperature Oxygen saturation Oxygen saturation in Arterial blood by Pulse oximetry Heart rate Systolic blood pressure Diastolic blood pressure Provider Name and Address Organization Details Last Updated DateTime 1 96242.5 5 g 16 /min 177.8 cm 27.3 kg/m2 97.5 [degF] 95 % 95 % 61 /min 124 mm[Hg] 84 mm[Hg] [facility] [place] - [facility] 1 11:26:48 Date Recorded Body height Body mass index (BMI) Body weight Oxygen saturation Oxygen saturation in Arterial blood by Pulse oximetry Heart rate Respiratory rate Body temperature Systolic blood pressure Diastolic blood pressure Provider Name and Address Organization Details Last Updated DateTime 3 177.8 cm 26.9 kg/m2 48264.8 7 g 99 % 99 % 58 /min 16 /min 97.1 [degF] 135 mm[Hg] 80 mm[Hg] Yoly Aguilar [place] [facility] 3 16:08:11 Date Recorded Body height Body mass index (BMI) Body weight Oxygen saturation Oxygen saturation in Arterial blood by Pulse oximetry Heart rate Respiratory rate Body temperature Systolic blood pressure Diastolic blood pressure Provider Name and Address Organization Details Last Updated DateTime 3 177.8 cm 25.5 kg/m2 09061.3 g 98 % 98 % 63 /min 16 /min 98.4 [degF] 110 mm[Hg] 62 mm[Hg] Yoly Aguilar MA [facility] 3 16:28:42 Date Recorded Body height Body mass index (BMI) Body weight Heart rate Body temperature Respiratory rate Oxygen saturation Oxygen saturation in Arterial blood by Pulse oximetry Systolic blood pressure Diastolic blood pressure Provider Name and Address Organization Details Last Updated DateTime 3 177.8 cm 25.8 kg/m2 35256.6 3 g 64 /min 98.6 [degF] 16 /min 95 % 95 % 135 mm[Hg] 82 mm[Hg] Janice Van MA [facility] 3 10:44:58 Social History Question Answer Notes LastModified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
--- OUTSIDE RECORDS SUMMARY | 2024-09-21 17:05 | XMS_ITS | Clinical Summary ---
Author Organization [facility] Address [address] [place] [address] Phone Care Team Providers Care Press Hand Name Role Phone Santana Adame MD Primary Care Provider [phone] Allergies No known active allergies Medications ibuprofen (MOTRIN) 200 MG Tablet Take 600 mg by mouth every 8 hours as needed. Active HYDROcodone-acet aminophen (NORCO) 5-325 MG Tablet Take 1-2 Tabs by mouth every 4 hours as needed for Pain. 40 Tab 7 Active azithromycin (ZITHROMAX) 250 MG Tablet 2 tab(s) daily for 1 day, then 1 tab(s) daily for days 2-5. 6 Tab 9 Active ondansetron (ZOFRAN) 4 MG Tablet Take 1 Tab by mouth every 6 hours as needed for Nausea - 1st line. 10 Tab 9 Active albuterol 108 (90 Base) MCG/ACT Aerosol Solution take 2 Puffs by inhalation every 6 hours as needed for Wheezing or Cough (SOB). 1 Inhaler 9 Active HYDROcodone-acet aminophen (NORCO) 5-325 MG TabletIndication s:Left knee injury Take 1 Tablet by mouth every 6 hours as needed for Moderate or more severe pain. 15 Tablet 3 Active meloxicam (MOBIC) 7.5 MG Tablet Take 1 Tablet by mouth daily. 30 Tablet 3 Active traMADol (ULTRAM) 50 MG TabletIndication s:Unilateral recurrent inguinal hernia without obstruction or gangrene Take 1-2 Tablets by mouth every 6 hours as needed for Severe pain. 20 Tablet 4 Active Active Problems No known active problems Family History Medical History Relation Name Comments Prostate Cancer Brother High Cholesterol Father Hypertension Father Stroke Father Heart Attack Mother Stroke Mother Relation Name Status Comments Brother Father Alive Mother Alive Social History Tobacco Use Types Packs/Day Years Used Date Smoking Tobacco: Every Day Cigarettes 0.5 20 Smokeless Tobacco: Never Tobacco Cessation:Ready to Q uit: Yes; Counseling Given: Yes Alcohol Use Standard Drinks/Week Comments No 0 (1 standard drink = 0.6 oz pur e alcohol) Sexually Active Control Partners Comments Yes Female Sex and Gender Information Value Date Recorded Sex Assigned at Not on file Legal Sex Male 9:13 PM CDT Gender Identity Not on file Sexual Orientation Not on file Last Filed Vital Signs Vital Sign Reading Time Taken Comments Blood Pressure 119/77 11/19/2023 10:30 AM CDT Pulse 56 11/19/2023 10:30 AM CDT Temperature 36.8 C (98.3 F) 11/19/2023 9:35 AM CDT Respiratory Rate 18 11/19/2023 10:30 AM CDT Oxygen Saturation 97% 11/19/2023 10:30 AM CDT Inhaled Oxygen Concentration - - Weight 81.6 kg (180 lb) 11/19/2023 9:35 AM CDT Height 177.8 cm (5' 10 ) 11/19/2023 9:35 AM CDT Body Mass Index 25.83 11/19/2023 9:35 AM CDT Plan of Treatment Health Maintenance Due Date Last Done Comments Hepatitis C Virus (HCV) Screening 1975 Hepatitis B Immunization (1 of 3 - 19+ 3-dose series) 02/05/1996 Pneumococcal Immunization Combined (1 of 2 - PCV) 02/05/1996 Colonoscopy 2022 Colorectal Cancer Screening 2022 Influenza Immunization (#1) 2024 SARS-COV-2 Immunization ( season) 2024 Respiratory Syncytial Virus (RSV) Immunization (Adult) (1 - 1-dose 75+ series) 02/05/2052 DTaP/Tdap/Td Immunization Discontinued 05/18/2015 TdaP Immunization Completed 05/18/2015 Meningococcal Immunization (ACWY) Aged Out No longer eligible based on patient's age to complete this topic Rotavirus Immunization Aged Out No lo nger eligible based on patient's age to complete this topic Medical Devices Implanted Type Area Underground Foreman Device Identifier Shelf Expiration Date Model / Serial / Lot Bard Inlay Ureteral Stent Implanted:Qty: 1 on 12/19/2016 by Daniele Flores MD at [facility] Left: Ureter [employer] 06/15/2021 [id number] / [id number] / [id number] Insurance MEDICAID [employer] Care Teams Press Hand Relationship Specialty Start Date End Date Santana Adame MD [address] [facility] [place] [place] [address] PCP - General Family Medicine 08/12/18
--- OUTSIDE RECORDS SUMMARY | 2024-09-21 17:05 | XMS_ITS | Clinical Summary ---
Author Organization [facility] Address [address] [place] [id number] Care Team Providers Care Steward/Stewardess Second Name Role Phone Unavailable Primary Care Provider Unavailabl e Social History Tobacco Use Types Packs/Day Years Used Date Smoking Tobacco: Never Assessed Sex and Gender Information Value Date Recorded Sex Assigned at Not on file Legal Sex Male 9:24 PM CDT Gender Identity Not on file Sexual Orientation Not on file Last Filed Vital Signs Vital Sign Reading Time Taken Comments Blood Pressure 130/78 09/23/2015 3:19 PM CDT Pulse 64 09/23/2015 3:19 PM CDT Temperature - - Respiratory Rate - - Oxygen Saturation - - Inhaled Oxygen Concentration - - Weight 97.1 kg (214 lb) 09/23/2015 3:19 PM CDT Height 177.8 cm (5' 10 ) 09/23/2015 3:19 PM CDT Body Mass Index 30.71 09/23/2015 3:19 PM CDT Plan of Treatment Health Maintenance Due Date Last Done Comments Colorectal Cancer Screening Colonoscopy (10 Years) 1977 Annual Physical 02/05/1980 Hepatitis C 1995 DTaP, Tdap and Td Vaccines ( 1 - Tdap) 02/05/1996 Hepatitis B Vaccines (1 of 3 - 19+ 3-dose series) 02/05/1996 COVID-19 Vaccine (2023-2 5 season) 2024 Influenza Adult (#1) 2024 Meningococcal B Vaccine Aged Out No l onger eligible based on patient's age to complete this topic Meningococcal Vaccine Aged Out No heidi raúl eligible based on patient's age to complete this topic Pneumococcal Vaccine: Pediat rics (0 to 5 Years) and At-Risk Patients (6 to 64 Years) Aged Out No longer eligible b ased on patient's age to complete this topic RSV Immunizations Under 20 Months Aged Out No longer eligible based on patient's age to complete this topic
--- OUTSIDE RECORDS SUMMARY | 2024-09-21 17:05 | XMS_ITS | Referral Summary ---
Author Organization [facility] Medical Office Building [address] Address [address] [place] [address] Care Team Providers Care Supplier Quality Engineering Manager Name Role Phone Santana Adame MD Primary Care Provider [phone] Swapnil Garcia MD Unavailable [phone] Itzel Guthrie PT Unavailable Unavaila ble Annamaria Padilla Unavailable + [phone] Allergies Active Allergy Reactions Criticality Noted Date Comments Codeine Nausea only Medium 08/23/2023 Medications tadalafiL (ADCIRCA) 10 mg tablet TAKE 1 TABLET BY MOUTH IN THE EVENING NEEDED 3 Active ascorbic acid (VITAMIN C) 500 mg tablet,chewable Take 1 tablet/chew tab (500 mg total) by mouth 2 (two) times a day 60 tablet/chew tab 4 Active Additional Information Patient not taking.Reported on 08/23/2023 aspirin 81 mg enteric coated tabletIndicatio ns:prevention of thrombosis Take 1 tablet (81 mg total) by mouth 2 (two) times a day for 14 days 28 tablet 4 Active Additional Information Patient not taking.Reported on 08/23/2023 cholecalciferol (VITAMIN D-3) 2000 unit capsule Take 1 capsule (2,000 Units total) by mouth daily 30 capsule 4 Active Additional Information Patient not taking.Reported on 08/23/2023 ondansetron (ZOFRAN) 4 mg tabletIndicatio ns:Prevention of Post-Operative Nausea and Vomiting Take 1 tablet (4 mg total) by mouth every 6 (six) hours as needed for nausea or vomiting 20 tablet 1 4 Active Additional Information Patient not taking.Reported on 08/23/2023 senna-docusate (PERICOLACE) 8.6-50 mg Take 1 tablet by mouth 2 (two) times a day as needed for constipation 30 tablet 1 4 Active Additional Information Patient not taking.Reported on 08/23/2023 celecoxib (CeleBREX) 200 mg capsule Take 1 capsule (200 mg total) by mouth 2 (two) times a day 60 capsule 4 Active Additional Information Patient not taking.Reported on 11/20/2023 HYDROcodone-elder taminophen (NORCO) 5-325 mg per tabletIndicatio ns:Pain Take 1 tablet by mouth every 6 (six) hours as needed for pain 15 tablet 4 Active Additional Information Patient not taking.Reported on 11/20/2023 Active Problems Problem Noted Date Diagnosed Date Left inguinal pain 12/05/2023 Assessment & Plan (12/05/2023 9:20 AM CDT): Recurrent left inguinal pain, repair less than one year prior. Unable to feel hernia. We will proceed with imaging to evaluate. Differential is muscle strain. Avoidance of aggravating activities recommended. Complex tear of medial meniscus of left knee Lipoma of skin 05/18/2023 Shoulder pain 05/18/2023 Skin lesion 05/18/2023 Smoker 05/18/2023 Tinea cruris 05/18/2023 Impingement syndrome of right shoulder 2 Overview (08/26/2021): Added automatically from request for surgery [id number] Arthritis of right acromioclavicular joint 08/26 Overview (08/26/2021): Added automatically from request for surgery [id number] Biceps tendinitis on right 08/26/2021 Overview (08/26/2021): Added automatically from request for surgery [id number] Kidney stone 11/24/2016 Chest pain 11/15/2016 Leukocytosis 11/15/2016 Resolved Problems Problem Noted Date Diagnosed Date Resolved Date Bilateral inguinal hernia wi thout obstruction or gangrene 12/06/2022 01/10/2023 Social History Tobacco Use Types Packs/Day Years Used Date Smoking Tobacco: Every Day Cigarettes 1.5 20 Smokeless Tobacco: Never Alcohol Use Standard Drinks/Week Comments Not Currently 0 (1 standard drink = 0.6 oz pur e alcohol) AUDIT-C Answer Date Recorded Frequency of Alcohol Consumption Not on file 08/09/2023 Q2: How many drinks containi ng alcohol do you have on a typical day when you are drinking? Patient does not drink Frequency of Binge Drinking Not on file 07/2023 Personal Safety Answer Date Recorded Have you ever been in or are you currently in a harmful physical or emotional relationship or is someone making you feel afraid or unsafe? 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 Oxygen Saturation 96% 11/20/2023 2:18 PM CDT Inhaled Oxygen Concentration - - Weight 84.4 kg (186 lb) 12/24/2023 1:26 PM CDT Height 175.3 cm (5' 9 ) 12/24/2023 1:26 PM CDT Body Mass Index 27.47 12/24/2023 1:26 PM CDT Plan of Treatment Not on file Medical Devices Implanted Type Area Bartender Device Identifier Shelf Expiration Date Model / Serial / Lot Ar[employer] Ar-3670 Set Implant Arthrex Fibertak Biceps Sterile Latex Free - [id number] Implanted:Qty: 1 on 09/13/2021 by Swapnil Garcia MD at [facility] Right: Shoulder [employer] 04/07/2026 [id number]-3670 / / [id number] Medtronic [employer] Progrip 15x9cm Self Deputy Director Of Nursing Rectangle Mesh Surgical Polyester Hernia [id number] - [id number] Implanted:Qty: 1 on 12/14/2022 by Joe Perez MD at [facility] Left: Inguinal Med[employer]onic Inc 06/07/2027 [id number] / / [id number] Medtronic [employer] Progrip 15x9cm Self Deputy Director Of Nursing Rectangle Mesh Surgical Polyester Hernia [id number] - [id number] Implanted:Qty: 1 on 12/14/2022 by Joe Perez MD at [facility] Right: Inguinal [employer] 03/08/2027 [id number] / / [id number] Insurance [facility] Care Teams Supplier Quality Engineering Manager Relationship Specialty Start Date End Date Santana Adame MD PCP - General Family Medicine 09/22/19 Swapnil Garcia MD [address] [facility] [address] [place] [address] Surgeon Orthopedic Surgery 09/13/21 Itzel Guthrie, PT Physical Therapist Physical Therapy 10/27/21 Annamaria Padilla PA [address] [place] [address] [address] [place] [address] Orthopedic Surgery 08/09/23
--- OUTSIDE RECORDS SUMMARY | 2024-09-21 17:05 | XMS_ITS | Clinical Summary ---
Author Organization [facility] Medical Office Building [address] Address [address] [place] [address] Care Team Providers Care Legislative Director Name Role Phone Santana Adame MD Primary Care Provider [phone] Swapnil Garcia MD Unavailable [phone] Itzel Guthrie PT Unavailable Unavaila ble Annamaria Padilla Unavailable + [phone] Allergies Active Allergy Reactions Criticality Noted Date [...] (08/26/2021): Added automatically from request for surgery [id number] Arthritis of right acromioclavicular joint 08/26 Overview (08/26/2021): Added automatically from request for surgery [id number] Biceps tendinitis on right 08/26/2021 Overview (08/26/2021): Added automatically from request for surgery [id number] Kidney stone 11/24/2016 Chest pain 11/15/2016 Leukocytosis 11/15/2016 Resolved Problems Problem Noted Date Diagnosed Date Resolved Date Bilateral inguinal hernia wi thout obstruction or gangrene 12/06/2022 01/10/2023 Surgical History Surgery Date Site/Laterality Comments HERNIA REPAIR 07/09/2008 - 07/08/2009 Umbilical Hernia Repair KIDNEY STONE SURGERY ROTATOR CUFF REPAIR 09/10/2021 Right INGUINAL HERNIA REPAIR 12/14/2022 Medical History Medical History Date Comments Kidney stone Rheumatoid arthritis (HCC) Family History Medical History Relation Name Comments Heart disease Mother Arthritis Other Relation Name Status Comments Mother Other Social History Tobacco Use Types Packs/Day Years [...] on file Legal 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 Gender Identity Not on file Sexual Orientation Not on file Obstetrics History Last Filed Vital Signs Vital Sign Reading Time Taken Comments Blood Pressure 119/76 12/24/2023 1:26 PM CDT Pulse 58 12/24/2023 1:26 PM CDT Temperature 36.4 C (97.5 F) 11/20/2023 2:18 PM CDT Respiratory Rate 18 08/09/2023 3:17 PM 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 Oxygen Saturation 96% 11/20/2023 2:18 PM CDT Inhaled Oxygen Concentration - - Weight 84.4 kg (186 lb) 12/24/2023 1:26 PM CDT Height 175.3 cm (5' 9 ) 12/24/2023 1:26 PM CDT Body Mass Index 27.47 12/24/2023 1:26 PM CDT Plan of Treatment Health Maintenance Due Date Last Done Comments Colon Cancer Screening-Colonoscopy 1977 Depression Screening 1977 Hepatitis C Screening 1977 Hepatitis B Screening 1995 Regular Well Visit/Exam 18-64 1995 Pneumococcal vaccine <65 (1 of 2 - PCV) 02/05/1996 Influenza Vaccine (#1) 2024 DTaP/Tdap/Td Vaccine (2 - Td or Tdap) 05/18/202504/2015 Medical Devices Implanted Type Area Underground Conduit Installer Device Identifier Shelf Expiration Date Model / Serial / Lot Ar[employer]rex Inc Ar-3670 Set Implant Arthrex Fibertak Biceps Sterile Latex Free - [id number] Implanted:Qty: 1 on 09/13/2021 by Swapnil Garcia MD at [facility] Right: Shoulder [employer] 04/07/2026 AR-3670 / / [id number] Medtronic Inc Progrip 15x9cm Self Regional Intermodal Truck Driver Rectangle Mesh Surgical Polyester Hernia [id number] - [id number] Implanted:Qty: 1 on 12/14/2022 by Joe Perze MD at [facility] Left: Inguinal Med[employer] 06/07/2027 [id number] / / [id number] Medtronic Inc Progrip 15x9cm Self Regional Intermodal Truck Driver Rectangle Mesh Surgical Polyester Hernia [id number] - [id number] Implanted:Qty: 1 on 12/14/2022 by Joe Perez MD at [facility] Right: Inguinal [employer] 03/08/2027 [id number] / / [id number] [id number] [facility] Care Teams Legislative Director Relationship Specialty Start Date End Date Santana Adame MD PCP - General Family Medicine 09/22/19 Swapnil Garcia MD [address] [facility] [address] [place] [address] Surgeon Orthopedic Surgery 09/13/21 Itzel Guthrie, PT Physical Therapist Physical Therapy 10/27/21 Annamaria Padilla PA [address] [place] [address] [address] [place] [address] Orthopedic Surgery 08/09/23
[2024-09-21 17:06] VITALS: BP 131/77; PULSE 50; RESP 16; TEMP 36.2; O2SAT 98
--- NOTE | 2024-09-21 17:26 | ED_ITS ---
HPI - Skin/Abscess/Foreign Bdy General Chief complaint: Skin/Abscess/Foreign Body Stated complaint: Skin Sore Time Seen by Provider: 09/21/24 17:20 Source: patient, RN notes reviewed and old records reviewed Mode of arrival: ambulatory Limitations: no limitations History of Present Illness HPI narrative: 49 year old male presents to express care with complaints of abscess boil to his right upper inner aspect of his gluteal fold that is painful red and swollen which started yesterday. Patient reports that he has had one of these type of boils in the past and has had to have it opened and drained. Patient reports that he has applied Prid salve to area and has applied heat and also Ibuprofen. Patient reports no known fevers states that pain has worsened today. MD complaint: abscess/boil (to right side of upper inner buttocks) Onset (ago): day(s) (day 2 of symptoms) Location: buttocks (right upper inner gluteal fold) Severity scale (1-10): 6 Quality: other (constant soreness) Treatments prior to arrival: OTC topical medication, NSAID and other (heat) Related Data Allergies Allergy/AdvReac Type Severity Reaction Status Date / Time No Known Allergies Allergy Verified 09/21/24 17:18 Review of Systems Review of Systems: CONSTITUTIONAL: Denies fever, chills, or sweats. CARDIOVASCULAR: Denies chest pain, palpitations, or edema. RESPIRATORY: Denies cough or dyspnea. GASTROINTESTINAL: Denies abdominal pain, nausea, vomiting SKIN: Reports redness and swelling of tissue area with pain to abscess/boil to the left upper inner gluteal fold with no fluctuant tissue noted or any drainage,tissue warm. MUSCULOSKELETAL: Denies myalgia. NEUROLOGIC: Denies headache, numbness All systems reviewed & are unremarkable except as noted in HPI and below PMFSH Past Medical History Medical History (Updated 09/22/24 @ 23:07 by Tammie Cook NP) Abscess Sinus infection GERD (gastroesophageal reflux disease) Surgical History Surgical History H/O inguinal hernia repair H/O arthroscopy of left knee 07/2023 meniscus repair History of rotator cuff surgery right History of umbilical hernia repair Family History Family History Other No significant family history Social History Social History (Updated 09/22/24 @ 22:59 by Tammie Cook NP) Smoking packs per day: 1 Smoking cigarettes per day: 20.0 Years smoked: 30 Smoking pack-years: 30.00 Smoking status: Current every day smoker Tobacco type: cigarettes Alcohol intake: current Alcohol use details: social Substance use: current Substance use type: marijuana Living arrangements: with family Gender identity (if verbalized by the patient): Male Comments At time of signature, agree with nursing past medical, surgical, social and family history. There is no relevant family history pertinent to the presenting complaint Exam Narrative: GENERAL: Well-appearing, well-nourished, and in no acute distress. HEAD: Normocephalic, atraumatic. EYES: PERRLA and EOMI. ENT: Nares clear, no rhinorrhea or epistaxis. Mucous membranes moist. NECK: Supple. no lymphadenopathy CHEST: Clear to auscultation. No respiratory distress. SAO2 98% on room air HEART: Regular rate and rhythm. No murmur heard. Normal peripheral pulses. ABDOMEN: Soft, nontender, nondistended, normal active bowel sounds. EXTREMITIES: Normal range of motion. No edema. SKIN: Warm, dry. Erythema, induration, tenderness, warmth with area 3cm X3cm area to right upper inner gluteal fold with no fluctuant tissue no drainage or pustule formation,No vesicles, bullae, necrosis NEURO: No focal deficits. Alert and oriented x3. Course Course Emergency Course: Patient is aware of diagnosis, understands and agrees to treatment plan. Anticipatory guidance given. Patient agrees to follow-up as directed and is aware of reasons to seek care at the emergency department. Portions of this record may have been created with voice recognition software Level of Care: Express Care Visit Vital Signs Vital signs: Vital Signs Temperature 36.2 C L 09/21/24 17:06 Pulse Rate 50 L 09/21/24 17:06 Respiratory Rate 16 09/21/24 17:06 Blood Pressure 131/77 09/21/24 17:06 Pulse Oximetry 98 09/21/24 17:06 Oxygen Delivery Room Air 09/21/24 17:06 Temperature 36.2 C L 09/21/24 17:06 Pulse Rate 50 L 09/21/24 17:06 Respiratory Rate 16 09/21/24 17:06 Blood Pressure 131/77 09/21/24 17:06 Pulse Oximetry 98 09/21/24 17:06 Oxygen Delivery Room Air 09/21/24 17:06 Reviewed MDM - Skin/Abscess/Foreign Bdy MDM Narrative Medical decision making narrative: Does not appear at this time to be erythema multiforme, bullous, SJS, TEN; no evidence at this time to suggest RMSF, endocarditis or Lyme disease; patient looks well, nontoxic and is tolerating oral intake; no neurologic signs or symptoms; no headache, photophobia or neck pain; afebrile; appropriate for initial outpatient treatment; discussed the importance of follow-up, patient agrees. Patient does not have history of penetrating trauma, laceration, blunt trauma, recent surgery, immunosuppression, malignancy, obesity, alcoholism, corticosteroid use. Question cellulitis, necrotizing soft tissue infection, abscess. Differential Diagnosis Differential diagnosis: Likely abscess of skin or subcutaneous tissue, cellulitis and other (pilonidal abscess) Medical Records Attestation: I reviewed the patient's medical records. Critical Care Time Critical Care Time Critical Care Time: No Discharge Plan Discharge Clinical Impression: Abscess of skin or subcutaneous tissue Qualifiers: Site of cutaneous abscess: buttock Qualified Code(s): L02.31 - Cutaneous abscess of buttock Patient Disposition: Home, Self-Care Condition: Stable Instructions: Antibiotic Form, Abscess (ED) Additional Instructions: Cleanse right upper buttocks twice daily with warm soapy water watch for increasing infection--redness, swelling, drainage Tylenol Ibuprofen for pain follow up with PCP in 7-10 days for a wound check recheck if develop fever, chills, increasing symptom Go to the ER if your symptoms become worse of if ANY new symptoms develop Pain medication for acute pain Antibiotics as prescribed take medication as prescribed Warm compresses to right buttock area 3--4 times daily If your symptoms persist, change or worsen significantly before you can contact your personal physician then please, without delay, go to the emergency department for further evaluation. Follow-up with PCP in 7-10 days or sooner if needed Follow up with PCP soon in regards to your blood pressure which is elevated above threshold for referral. Blood pressure above 120/80 may indicate pre- hypertension.131/77 Patient Language: Bolivian Prescriptions: New amoxicillin-pot clavulanate 875-125 mg tablet 1 tablet PO Q12H Qty: 20 0RF Rx Instructions: take as prescribed naloxone [Narcan] 4 mg/actuation spray,non-aerosol 4 mg intranasal Q2M PRN (Reason: opioid overdose) Qty: 2 0RF Rx Instructions: spray 1 dose into ONE nostril; alternate nostrils w each dose until help arrives hydrocodone-acetaminophen 7.5-325 mg tablet 1 tablet PO Q6H PRN (Reason: pain) Qty: 10 0RF Follow-up/Referrals: Deep,Santana Hackett MD [Primary Care Provider] - Time of Disposition: 17:47 Quality Gurmeet Coma Scale Eyes: Open Verbal: Oriented and Alert Motor: Follows Commands Henning Coma Total Score: 15
== END 2024-09-21 17:48 | disposition home or self-care (01) ==
PROVIDERS: Emergency Provider Registered Nurse; PCP Family Medicine
DX: L02.31 Cutaneous abscess of buttock (principal); F17.210 Nicotine dependence, cigarettes, uncomplicated; F12.90 Cannabis use, unspecified, uncomplicated; K21.9 Gastro-esophageal reflux disease without esophagitis
CPT/HCPCS: 99213; G0463